=== PATIENT | female | born 1955 | race Caucasian/White ===

== ENCOUNTER 2024-03-13 08:57 | Emergency (ER) | payer BC, MEDICAID ==
[~2024-03-13] VITALS: Ht 172.7 cm; Wt 69.0 kg
[2024-03-13 09:05] VITALS: O2SAT 98
[2024-03-13 11:50] VITALS: BP 152/86; PULSE 71; RESP 16
[2024-03-13] MEDS: IBUPROFEN 400MG TABLET PO ONE (11:50)
[2024-03-13 11:51] VITALS: TEMP 98.2
[2024-03-13] MEDS: ACETAMINOPHEN 325MG TABLET PO ONE (11:51)
[2024-03-13] MEDS ORDERED: IMOD MT (15:08)
== END 2024-03-13 14:32 | disposition home or self-care (01) ==
LOC: ER 08:57
DX: M79.671 Pain in right foot (principal); M79.672 Pain in left foot
CPT/HCPCS: 73620; 99283